=== PATIENT | male | born 1945 | race Caucasian/White ===

== ENCOUNTER 2017-10-18 08:06 | Emergency (ER) | payer MEDICARE, MEDICAID ==
[~2017-10-18] VITALS: Ht 182.9 cm; Wt 113.4 kg
[~2017-10-18 08:06] MED LIST: ADULT LOW DOSE81 MG PO; AMLODIPINE10 MG PO; AMLODIPINE5 M1 PO; ANTARA30 MG PO; ASPIRIN ADULT L81 M2 PO; AUGMENTIN 875-1 EACH PO; COGENTIN GENERIC1 MG PO; DOCUSATE SODIU100 MG PO; FISH OIL1000 MG PO; FLONASE 50 MCG16 GM; GALANTAMINE HYDR8 MG PO; GOOD NEIGHBOR P20 M1 PO; HALDOL 1MG. TABL1 MG IM; KEPPRA 500 MG500 MG PO; MAXZIDE 50 MG-71 TAB PO; MULTIVITAMIN1 SGL PO; NEXIUM40 MG/PACK PO; RAZADYNE8 MG PO; TYLENOL ES500 MG PO; VITAMIN D1000 IU PO
--- NOTE | 2017-10-18 08:19 | Emergency Room Report ---
History of Present Illness Time Seen by [id number] Presenting Problem in Triage Pt arrived:Ambulance Stretcher Presenting Problem:FROM [facility]. PATIENT REPORTEDLY FELL AT 0600 IN ROOM AND HIT HEAD. WHEN NURSING STAFF SAT HIM UP, HE WAS UNABLE TO SIT UP ON HIS OWN AND HAVING ALTERED MENTAL STATUS. Onset of symptoms date/time:10/18/17 or onset unknown for: Treatment Prior to Arrival: TRANSPORT, 18G IV PLACED LEFT AC RECORDS ASSISTANT Provided by: EMT Sepsis Risk Assessment: Temp: 98.5 B/P: 152/83 MAP: 106 Pulse: 80 Resp: 20 Recent fever? N Clinical Suspician of Infection? N Mental Status: 1 - Regular (Normal Baseline) Sepsis Risk:Low Sepsis Risk Have you (or family members/close friends) recently traveled outside the [place]? N If Yes, where/when: Have you had exposure to infectious disease within the past month? TB? Other? Specify: Patient with acutely slurred speech. He is able to comprehend and can answer yes/no questions as well as respond appropriately to questions by MD. He is able to express that he had slurred speech last night. He is able to confirm that he fell at the NH today with neg LOC at about six this AM. He takes aspirin. He is brought today via EMS due to slurred speech and head trauma with fall, no bleeding. Information obtained from EMS and NH, and in a limited fashion, from the patient. FSBS 118 in ED. Has hx dementia and paranoid schizophrenia per review of [place] papers. ALLERGIES Coded Allergies: No Known Allergies (11/05/16) Home Medications Reported Medications Aspirin 81 MG PO DAILY BENZTROPINE MESYLATE (COGENTIN 1MG TAB) 1 MG PO DAILY Fluticasone Propionate (Flonase 50 Mcg Nasal [place]) 1 SPRAY NA BID GALANTAMINE HBR ([place]) 8 MG PO BID MULTIVITAMIN (Multivitamins) 1 SGL PO DAILY Esomeprazole Magnesium (Nexium) 40 MG PO DAILY CHOLECALCIFEROL (VITAMIN D3) (Vitamin D3) 2,000 IUNITS PO DAILY Haloperidol (Haldol) 50 MG IM MONTHLY Metoprolol Tartrate (Metoprolol 25MG) 25 MG PO BID Acetaminophen (Tylenol XS 500MG) 1,000 MG PO Q6HP PRN PAIN/INCREASED TEMP History Medical History General CAD? No Angina: No [place]: No Hypertension? Yes Hyperlipidemia? Yes CHF? No DVT? No PE? No COPD? Yes Asthma? No Anemia? No GERD? Yes Gastric ulcers? No GI Bleed? No Hernia? No Thyroid Problems? No Hypothyroidism? No CVA? No Seizures? Yes Diabetes? No End Stage Renal Disease? No UTI? No Stones? No BPH? No GB Disease: No Nephritic Syndrome? No Asplenia? No Hepatitis? No Sickle Cell Disease? No Arthritis? Yes Migraines? No Cataracts? No Glaucoma? No MRSA? No HIV? No TB? No Anxiety? No Depression? No Cancer? No More? Yes Additional hx: DEMENTIA, ACHIOPRHRENIA Immunization Hx DT/Tetanus Unknown Surgical Hx Previous Surgery?N Family History Family Hx Cancer Yes Social History Smoking Hx Smoker: Never Smoker Tobacco: No Packs/day < 1 Pack Alcohol Alcohol: No Review of Systems All Other Systems Reviewed and Negative (limited due to speech change) Psychiatric/Neurological see HPI (last normal last night) Physical Exam Vital Signs Vital Signs Date Time Temp Pulse Resp B/P Pulse O2 O2 Flow FiO2 Ox Delivery Rate 10/18 0952 90 16 107/70 94 10/18 0809 98.5 80 20 152/83 91 General Appearance normal appearance, WD/WN, no apparent distress Eye Exam - bilateral eye normal exam, bilateral eye PERRL, bilateral eye EOMI (seems not to see well on left) Ear, Nose, Throat hearing grossly normal (atraumatic) Neck normal inspection, non-tender, supple, full range of motion Respiratory Status Yes: trachea midline, chest symmetrical, non tender chest. No: respiratory distress, tender on palpation, use of accessory muscles, pain on inspiration, pain on expiration, productive cough, non productive cough. Lung Sounds bilateral: normal breath sounds, lungs clear. Cardiovascular normal exam, regular rate/rhythm, no peripheral edema, no gallop, no JVD, no murmur, no rub, normal peripheral pulses Gastrointestinal normal bowel sounds, normal exam, non tender, soft, no organomegaly, no guarding, no rebound Back normal inspection, no vertebral tenderness, bowel/bladder continent, strt leg raising(L)-NML, strt leg raising(R)-NML Extremities non-tender, normal inspection, normal capillary refill Strength 4 Upper Ext (L), 4 Upper Ext (R), 4 Lower Ext (L), 4 Lower Ext (R) (formulator equal; globally weak) Neurologic alert, no motor/sensory deficits, oriented x 3, expressive aphasia, moderate. Globally weak, formulator equal; seems to have difficulty counting number of fingers in front of left eye when right eye covered; has intention tremor bilaterally. Gait not checked due to fall risk. No facial droop or drooling. Sensate face. Sensate limbs. Glascow Coma Scale Glascow Coma Scale Response Value EYE response: 4 Spontaneously 4 MOTOR response: 6 OBEYS 6 VERBAL response: 5 Oriented & Converses 5 Total 15 Skin intact, normal color Stroke Score/Tx Stroke Evaluation Initial symptoms indicative of possible stroke? Yes (also head trauma, however) NIH STROKE SCORE NIH STROKE SCORE Response Value 1a.Level of Consciousness ALERT 0 1b.LOC Questions ANSWERS BOTH CORRECTLY 0 1c.LOC Commands OBEYS BOTH CORRECTLY 0 2 .Best Gaze NORMAL 0 3 .Visual NO VISUAL LOSS 0 4 .Facial Palsy NORMAL 0 5a.Motor Arm Left NO DRIFT 0 5b.Motor Arm Right NO DRIFT 0 6a.Motor Leg Left NO DRIFT 0 6b.Motor Leg Right NO DRIFT 0 7 .Limb Ataxia ABSENT 0 8 .Sensory NORMAL 0 10.Dysarthria MILD TO MOD DYSARTHRIA 1 ED.NIH11 NO NEGLECT 0 Total 1 Treatment Consideration t-PA ordered? No Medical contraindications- onset last night so outside window period. also struck head this AM unknown if seizure or trauma. Medical Decision Making LABS/Meds/Orders Pt receiving controlled substance in ED? No Ovidio was queried for this patient? No Results/Orders Laboratory Tests 10/18/17 0905: Urine Color YELLOW, Urine Appearance CLEAR, Urine pH 6.0, Ur Specific [place] 1.020, Urine Protein 2+ H, Urine Ketones NEGATIVE, Urine Blood 2+ H, Urine Nitrate NEGATIVE, Urine Bilirubin NEGATIVE, Urine Urobilinogen 0.2, Ur Leukocyte Esterase NEGATIVE, Urine RBC NONE, Urine WBC OCC, Ur Squamous Epith Cells 3-5, Urine Bacteria 2+, Urine Glucose NEGATIVE 10/18/17 0840: POC Glucose 118 H 10/18/17 0820: Sodium 137, Potassium 4.4, Chloride 104, Carbon Dioxide 25, BUN 41 H, Creatinine 2.4 H, Estimated Creat Clear 45 L, Estimated GFR (MDRD) 27, Glucose 130 H, Calcium 8.8, Total Bilirubin 0.4, AST 16, ALT 28, Alkaline Phosphatase 82, Troponin I < 0.02, Total Protein 6.9, Albumin 2.9 L, Globulin 4.0 H, Albumin/Globulin Ratio 0.7 L, WBC 12.0 H, RBC 4.13 L, Hgb 11.4 L, Hct 34.8 L, MCV 84.1, RDW 14.2, Plt Count 263, MPV 7.4, Gran % 87.6 H, Gran # 10.5 H, Total Counted 100, Lymphocytes % 6.4 L, Monocytes % 5.5, Eosinophils % 0.4, Basophils % 0.2, Neutrophils 84 H, Band Neutrophils 8, Lymphocytes (Manual) 4 L, Lymphocytes # 0.8, Monocytes (Manual) 3, Monocytes # 0.7, Eosinophils # 0.0, Eosinophils # (Manual) 1, Basophils # 0.0, Platelet Estimate NORMAL, PUBS MCHC 33.0, MCH 27.7 Orders Procedure Date/time Status DIET-NOTHING BY MOUTH 10/[address] CERVICAL SPINE W/O CONT. 10/18 09 Active CULTURE, URINE 10/[address] SCAN REQ 10/18 0904 Complete GEN NSG/PT REQ (NOT FOR MEDS!) 10/18 0904 Active FINGERSTICK BLOOD SUGAR 10/18 0840 Complete DIFFERENTIAL-WBC 10/18 0820 Complete ELECTROCARDIOGRAM REQUEST 10/18 0817 Active CHEST-AP VIEW ONLY 10/18 0817 Active URINALYSIS/COMPLETE 10/18 0817 Complete TROPONIN I 10/18 0817 Complete FSBS REQUEST BY CARE AREA 10/18 0817 Active CBC WITH AUTO DIFF 10/18 0817 Complete CHEM 12 PROFILE 10/18 0817 Complete 12 LEAD EKG-TOR (INITIAL) 10/[address] HEAD REQ 10/18 0808 Complete CM/EKG CM/EKG EKG rate, NSR, rhythm, no evid. of ischemic chgs, no ectopy, normal QRS, normal NE, normal EKG (NSR 75) XRAY/CT/US XRAY/CT/US CT head CT interpretation by reviewed by me (report reviewed) Time results known: 854 CT Results neg acute findings; hx sinusitis. Consult MD Physician Consult Consult/PCP Dr. Reid STARKS requesting C collar placement prior to transfer to [facility]. Time Called 0855 Reason Pt. Condition, Transfer to facility, Neuro eval/care Progress ED Progress Notes Date 10/18/17 Time 0943 Comment Awaiting EMS arrival. Departure Departure Time of Disposition 09 Disposition DC/XFER from ER to [facility] Clinical Impression Primary Impression: Expressive aphasia Condition STABLE Referrals Raul Lemon MD (PCP) ED Critical Care Critical Care Yes Time spent < 30 min Vital system(s) involved: Central Nervous System I was present at bedside for Coordinating pt's care, Reviewing old records, Discussing pt condition, For re-examinations, consultation at [phone]
--- NOTE | 2017-10-18 08:19 | Emergency Room Report ---
History of Present Illness Time Seen by [id number] Presenting Problem in Triage Pt arrived:Ambulance Stretcher Presenting Problem:FROM [facility]. PATIENT REPORTEDLY FELL AT 0600 IN ROOM AND HIT HEAD. WHEN NURSING STAFF SAT HIM UP, HE WAS UNABLE TO SIT UP ON HIS OWN AND HAVING ALTERED MENTAL STATUS. Onset of symptoms date/time:10/18/17 or onset unknown for: Treatment Prior to Arrival: TRANSPORT, 18G IV PLACED LEFT AC SUPERVISOR ADVICE Provided by: EMT Sepsis Risk Assessment: Temp: 98.5 B/P: 152/83 MAP: 106 Pulse: 80 Resp: 20 Recent fever? N Clinical Suspician of Infection? N Mental Status: 1 - Regular (Normal Baseline) Sepsis Risk:Low Sepsis Risk Have you (or family members/close friends) recently traveled outside the [place]? N If Yes, where/when: Have you had exposure to infectious disease within the past month? TB? Other? Specify: Patient with acutely slurred speech. He is able to comprehend and can answer yes/no questions as well as respond appropriately to questions by MD. He is able to express that he had slurred speech last night. He is able to confirm that he fell at the NH today with neg LOC at about six this AM. He takes aspirin. He is brought today via EMS due to slurred speech and head trauma with fall, no bleeding. Information obtained from EMS and NH, and in a limited fashion, from the patient. FSBS 118 in ED. Has hx dementia and paranoid schizophrenia per review of [place] papers. ALLERGIES Coded Allergies: No Known Allergies (11/05/16) Home Medications Reported Medications Aspirin 81 MG PO DAILY BENZTROPINE MESYLATE (COGENTIN 1MG TAB) 1 MG PO DAILY Fluticasone Propionate (Flonase 50 Mcg Nasal [place]) 1 SPRAY NA BID GALANTAMINE HBR ([place]) 8 MG PO BID MULTIVITAMIN (Multivitamins) 1 SGL PO DAILY Esomeprazole Magnesium (Nexium) 40 MG PO DAILY CHOLECALCIFEROL (VITAMIN D3) (Vitamin D3) 2,000 IUNITS PO DAILY Haloperidol (Haldol) 50 MG IM MONTHLY Metoprolol Tartrate (Metoprolol 25MG) 25 MG PO BID Acetaminophen (Tylenol XS 500MG) 1,000 MG PO Q6HP PRN PAIN/INCREASED TEMP History Medical History General CAD? No Angina: No [place]: No Hypertension? Yes Hyperlipidemia? Yes CHF? No DVT? No PE? No COPD? Yes Asthma? No Anemia? No GERD? Yes Gastric ulcers? No GI Bleed? No Hernia? No Thyroid Problems? No Hypothyroidism? No CVA? No Seizures? Yes Diabetes? No End Stage Renal Disease? No UTI? No Stones? No BPH? No GB Disease: No Nephritic Syndrome? No Asplenia? No Hepatitis? No Sickle Cell Disease? No Arthritis? Yes Migraines? No Cataracts? No Glaucoma? No MRSA? No HIV? No TB? No Anxiety? No Depression? No Cancer? No More? Yes Additional hx: DEMENTIA, ACHIOPRHRENIA Immunization Hx DT/Tetanus Unknown Surgical Hx Previous Surgery?N Family History Family Hx Cancer Yes Social History Smoking Hx Smoker: Never Smoker Tobacco: No Packs/day < 1 Pack Alcohol Alcohol: No Review of Systems All Other Systems Reviewed and Negative (limited due to speech change) Psychiatric/Neurological see HPI (last normal last night) Physical Exam Vital Signs Vital Signs Date Time Temp Pulse Resp B/P Pulse O2 O2 Flow FiO2 Ox Delivery Rate 10/18 0952 90 16 107/70 94 10/18 0809 98.5 80 20 152/83 91 General Appearance normal appearance, WD/WN, no apparent distress Eye Exam - bilateral eye normal exam, bilateral eye PERRL, bilateral eye EOMI (seems not to see well on left) Ear, Nose, Throat hearing grossly normal (atraumatic) Neck normal inspection, non-tender, supple, full range of motion Respiratory Status Yes: trachea midline, chest symmetrical, non tender chest. No: respiratory distress, tender on palpation, use of accessory muscles, pain on inspiration, pain on expiration, productive cough, non productive cough. Lung Sounds bilateral: normal breath sounds, lungs clear. Cardiovascular normal exam, regular rate/rhythm, no peripheral edema, no gallop, no JVD, no murmur, no rub, normal peripheral pulses Gastrointestinal normal bowel sounds, normal exam, non tender, soft, no organomegaly, no guarding, no rebound Back normal inspection, no vertebral tenderness, bowel/bladder continent, strt leg raising(L)-NML, strt leg raising(R)-NML Extremities non-tender, normal inspection, normal capillary refill Strength 4 Upper Ext (L), 4 Upper Ext (R), 4 Lower Ext (L), 4 Lower Ext (R) (cardiac specialist equal; globally weak) Neurologic alert, no motor/sensory deficits, oriented x 3, expressive aphasia, moderate. Globally weak, cardiac specialist equal; seems to have difficulty counting number of fingers in front of left eye when right eye covered; has intention tremor bilaterally. Gait not checked due to fall risk. No facial droop or drooling. Sensate face. Sensate limbs. Glascow Coma Scale Glascow Coma Scale Response Value EYE response: 4 Spontaneously 4 MOTOR response: 6 OBEYS 6 VERBAL response: 5 Oriented & Converses 5 Total 15 Skin intact, normal color Stroke Score/Tx Stroke Evaluation Initial symptoms indicative of possible stroke? Yes (also head trauma, however) NIH STROKE SCORE NIH STROKE SCORE Response Value 1a.Level of Consciousness ALERT 0 1b.LOC Questions ANSWERS BOTH CORRECTLY 0 1c.LOC Commands OBEYS BOTH CORRECTLY 0 2 .Best Gaze NORMAL 0 3 .Visual NO VISUAL LOSS 0 4 .Facial Palsy NORMAL 0 5a.Motor Arm Left NO DRIFT 0 5b.Motor Arm Right NO DRIFT 0 6a.Motor Leg Left NO DRIFT 0 6b.Motor Leg Right NO DRIFT 0 7 .Limb Ataxia ABSENT 0 8 .Sensory NORMAL 0 10.Dysarthria MILD TO MOD DYSARTHRIA 1 ED.NIH11 NO NEGLECT 0 Total 1 Treatment Consideration t-PA ordered? No Medical contraindications- onset last night so outside window period. also struck head this AM unknown if seizure or trauma. Medical Decision Making LABS/Meds/Orders Pt receiving controlled substance in ED? No Ovidio was queried for this patient? No Results/Orders Laboratory Tests 10/18/17 0905: Urine Color YELLOW, Urine Appearance CLEAR, Urine pH 6.0, Ur Specific [place] 1.020, Urine Protein 2+ H, Urine Ketones NEGATIVE, Urine Blood 2+ H, Urine Nitrate NEGATIVE, Urine Bilirubin NEGATIVE, Urine Urobilinogen 0.2, Ur Leukocyte Esterase NEGATIVE, Urine RBC NONE, Urine WBC OCC, Ur Squamous Epith Cells 3-5, Urine Bacteria 2+, Urine Glucose NEGATIVE 10/18/17 0840: POC Glucose 118 H 10/18/17 0820: Sodium 137, Potassium 4.4, Chloride 104, Carbon Dioxide 25, BUN 41 H, Creatinine 2.4 H, Estimated Creat Clear 45 L, Estimated GFR (MDRD) 27, Glucose 130 H, Calcium 8.8, Total Bilirubin 0.4, AST 16, ALT 28, Alkaline Phosphatase 82, Troponin I < 0.02, Total Protein 6.9, Albumin 2.9 L, Globulin 4.0 H, Albumin/Globulin Ratio 0.7 L, WBC 12.0 H, RBC 4.13 L, Hgb 11.4 L, Hct 34.8 L, MCV 84.1, RDW 14.2, Plt Count 263, MPV 7.4, Gran % 87.6 H, Gran # 10.5 H, Total Counted 100, Lymphocytes % 6.4 L, Monocytes % 5.5, Eosinophils % 0.4, Basophils % 0.2, Neutrophils 84 H, Band Neutrophils 8, Lymphocytes (Manual) 4 L, Lymphocytes # 0.8, Monocytes (Manual) 3, Monocytes # 0.7, Eosinophils # 0.0, Eosinophils # (Manual) 1, Basophils # 0.0, Platelet Estimate NORMAL, PUBS MCHC 33.0, MCH 27.7 Orders Procedure Date/time Status DIET-NOTHING BY MOUTH 10/[address] CERVICAL SPINE W/O CONT. 10/18 09 Active CULTURE, URINE 10/[address] SCAN REQ 10/18 0904 Complete GEN NSG/PT REQ (NOT FOR MEDS!) 10/18 0904 Active FINGERSTICK BLOOD SUGAR 10/18 0840 Complete DIFFERENTIAL-WBC 10/18 0820 Complete ELECTROCARDIOGRAM REQUEST 10/18 0817 Active CHEST-AP VIEW ONLY 10/18 0817 Active URINALYSIS/COMPLETE 10/18 0817 Complete TROPONIN I 10/18 0817 Complete FSBS REQUEST BY CARE AREA 10/18 0817 Active CBC WITH AUTO DIFF 10/18 0817 Complete CHEM 12 PROFILE 10/18 0817 Complete 12 LEAD EKG-TOR (INITIAL) 10/[address] HEAD REQ 10/18 0808 Complete CM/EKG CM/EKG EKG rate, NSR, rhythm, no evid. of ischemic chgs, no ectopy, normal QRS, normal RI, normal EKG (NSR 75) XRAY/CT/US XRAY/CT/US CT head CT interpretation by reviewed by me (report reviewed) Time results known: 854 CT Results neg acute findings; hx sinusitis. Consult MD Physician Consult Consult/PCP Dr. Reid STARKS requesting C collar placement prior to transfer to [facility]. Time Called 0855 Reason Pt. Condition, Transfer to facility, Neuro eval/care Progress ED Progress Notes Date 10/18/17 Time 0943 Comment Awaiting EMS arrival. Departure Departure Time of Disposition 09 Disposition DC/XFER from ER to [facility] Clinical Impression Primary Impression: Expressive aphasia Condition STABLE Referrals Raul Lemon MD (PCP) ED Critical Care Critical Care Yes Time spent < 30 min Vital system(s) involved: Central Nervous System I was present at bedside for Coordinating pt's care, Reviewing old records, Discussing pt condition, For re-examinations, consultation at 2137
[2017-10-18] MEDS ORDERED: METOPROLOL 25 M25 MG PO (08:23)
[2017-10-18 08:42] LABS: LYMPH # 0.8 K/mm3 (0.7-4.5); LYMPH % 6.4 % (10-50)
[2017-10-18 08:44] LABS: HEMOGLOBIN 11.4 g/dL (14.1-18.0)
--- NOTE | 2017-10-18 08:49 | RADIOLOGY REPORT PS360 ---
CT HEAD WITHOUT CONTRAST CT BONE WINDOWS included ORDERING PHYSICIAN : Kerry Eden MD PATIENT AGE: 72 years GENDER: Male PROCEDURE: Routine axial images headwithout contrast. Brain & bone windows HISTORY: STROKE PROTOCOL AMS FALL slurred speech, mental status changes. senior living patient. Fell this morning COMPARISON: 11/05/2016 CT head and [address] had FINDINGS: No acute intracranial findings. No hemorrhage. No mass effect or mass lesion. No subdural nor extra-axial collection. Diffuse cerebral atrophy. Mild dilatation the lateral ventricles most likely reflecting the cerebral atrophy. The posterior fossa appear satisfactory and unremarkable. No skull fracture nor lesion. Paranasal sinus disease Bilateral ethmoid sinusitis again noted- with mucosal thickening & opacification numerous ethmoid air cells bilaterally, most evident on right. Left maxillary sinus large likely retention cyst extending from the ovoid density medial floor left maxillary sinus 2.4 cm. Right maxillary sinus with moderate diffuse mucosal thickening with likely some minimal fluid posteriorly which may reflect acute sinusitis. Findings here are shown slight progression since November Sphenoid and frontal sinus are relatively clear scant mucosal thickening.. Mastoid air cells, middle ear & IACs are unremarkable. Critical result called to Merary in ER on 10/18/2017 8:44 AM. IMPRESSION: No acute intracranial findings. CT brain unchanged since head CT studies . Cerebral atrophy . Paranasal sinus disease again observed.. Bilateral ethmoid sinusitis most pronounced
[2017-10-18 08:58] LABS: BUN 41 mg/dL (7-18)
[2017-10-18 09:01] LABS: GFR (ESTIMATED) 27 ML/MIN (>60); NEUTROPHILS 84 % (42-76)
[2017-10-18 09:34] LABS: URINE BILIRUBIN - DIPSTICK NEGATIVE (NEG); URINE BLOOD 2+ (NEG)
--- NOTE | 2017-10-18 10:15 | RADIOLOGY REPORT PS360 ---
CHEST-AP VIEW ONLY HISTORY: slurred speech; fell struck head this AM Patient Age: 72 years: Male Ordering Physician: Kerry Eden MD TECHNIQUE: AP lordotic portable chest COMPARISON :Prior chest film 11/04/2016 FINDINGS Somewhat distorted chest view. Chest rotated to the left with lordotic projection . . Apices the lungs are clear. The left lung is clear. Increased markings at right 1 base suggesting most likely atelectasis here.. Difficult to exclude minimal infiltrate but favor minimal atelectasis. If first ray symptoms follow-up suggested to exclude early infiltrate right lung base. The heart josé antonio and mediastinal structures appear satisfactory otherwise. IMPRESSION: Lordotic, Leftward rotated chest distorts the chest. Increased markings right lung base most likely reflect atelectasis & rotated projection, but difficult to exclude early infiltrate right lung base.] If respiratory symptoms persist consider follow-up
--- OUTSIDE RECORDS SUMMARY | 2017-10-18 10:18 | External Medical Summary Rpt | CCD ---
Author Author , BERRY SMART Address Unknown Phone [email or web address] 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 J32.9 CHRONIC SINUSITIS, UNSPECIFIED R31.29 OTHER MICROSCOPIC HEMATURIA R46.89 OTHER SYMPTOMS AND SIGNS INVOLVING APPEARANCE AND BEHAVIOR R47.9 UNSPECIFIED SPEECH DISTURBANCE S S00.93XA CONTUSION OF UNSPECIFIED PART OF HEAD, INITIAL ENCOUNTER S06.9X9A UNSP INTRACRANIA L INJURY W LOC OF UNSP DURATION, INIT S50.02XA CONTUSION OF LEFT ELBOW, INITIAL ENCOUNTER W19.XXXA UNSPECIFIED FALL, INITIAL ENCOUNTER Results Labs Lab Lab Date Result Refere Interp Status Commen Order Detail nces retati t Range on Urinalysis dipstick W Reflex Microscopic panel in Urine (10-18-2017 09:05) Bacteri 2+ O complet a 017 ed [Presen 09:05 ce] in Urine sedimen t by Light microsc opy Erythro NONE 0 complet cytes 017 ed [Presen 09:05 ce] in Urine sedimen t by Light microsc opy Epithel 3-5 OCC complet ial 017 ed cells.s 09:05 quamous [Presen ce] in Urine sedimen t by Microsc opy high power field Urinalysis dipstick W Reflex Microscopic panel in Urine (10-18-2017 09:05) Appeara CLEAR CLEAR complet nce of 017 ed Urine 09:05 Bilirub NEGATIV NEG complet in 017 E ed [Presen 09:05 ce] in Urine by Test strip Erythro 2+ NEG Abnorma complet cytes 017 l ed [Presen 09:05 ce] in Urine Color YELLOW YELLOW complet of 017 ed Urine 09:05 Ketones NEGATIV NEG complet 017 E ed [Presen 09:05 ce] in Urine by Automat ed test strip Mucus NEGATIV NEG complet [Presen 017 E ed ce] in 09:05 Urine sedimen t by Light microsc opy Nitrite NEGATIV NEG complet 017 E ed [Presen 09:05 ce] in Urine by Test strip Urobili 0.2 NEG complet nogen 017 ed [Presen 09:05 ce] in Urine by Test strip Glucose capillary blood glucometer (10-18-2017 08:40) Glucose = 118 70-110 complet 017 mg/dl ed capilla 08:[address] CBC w auto diff (10-18-2017 08:20) Automat = 0.0 0-0.2 complet ed 017 K/MM3 ed blood 08:20 basophi l count (count/ vo Baso % = 0.2 % 0.1-2.0 complet 017 ed 08:20 Automat = 0.0 0.0-0.4 complet ed 017 K/mm3 ed blood 08:20 eosinop hil count Automat = 0.4 % 0.1-12. complet ed 017 0 ed blood 08:20 eosinop hils/10 0 leukocy t Blood = 10.5 1.3-8.0 complet granulo 017 K/mm3 ed cytes 08:20 automat ed count (numb Granulo = 87.6 37.0-80 complet cyte 017 % .0 ed percent 08:20 age Blood = 34.8 42.0-52 complet hematoc 017 % .0 ed rit 08:20 (volume fractio n) Blood = 11.4 14.1-18 complet hemoglo 017 g/dL .0 ed bin 08:20 measure ment (mass/v olum Absolut = 0.8 0.7-4.5 complet e 017 K/mm3 ed lymphoc 08:20 yte count Lymphoc = 6.4 % 10-50 complet yte 017 ed count, 08:20 blood, automat ed Mean = 27.7 27-31.2 complet corpusc 017 pg ed ular 08:20 hemoglo bin (M[facility]) determ Automat = 33.0 31.8-35 complet ed 017 g/dl .4 ed erythro 08:20 cyte mean corpusc ular h Automat = 84.1 82.2-97 complet ed 017 fl .8 ed erythro 08:20 cyte mean corpusc ular v Absolut = 0.7 0.1-1.0 complet e 017 K/mm3 ed monocyt 08:20 e count [place] % = 5.5 % 1.7-9.3 complet 017 ed 08:20 Automat = 7.4 7.4-10. complet ed 017 fl 4 ed blood 08:20 platele t mean volume usman Blood = 263 142-424 complet platele 017 K/mm3 ed t count 08:20 Red = 4.13 4.6-6.2 complet blood 017 M/mm3 ed cell 08:20 count Automat = 14.2 11.5-17 complet ed 017 % .5 ed erythro 08:20 cyte distrib ution width Blood = 12.0 4.8-10. complet leukocy 017 K/MM3 8 ed marlen 08:20 count (number /volume ) Differential panel, method unspecified - (10-18-2017 08:20) Manual = 1 % 0-3 complet blood 017 ed eosinop 08:20 hils/10 0 leukocy marlen LYMPH 4 % 10-50 complet 017 ed 08:20 Monocyt = 3 % 2-9 complet e % 017 ed 08:20 Platele NORMAL complet t 017 NORMAL ed estimat 08:20 L e Neutrop = 84 % 42-76 complet hil 017 ed count 08:20 Blood = 100 complet total 017 #CELLS ed cell 08:20 count Automat = 8 % 0-8 complet ed 017 ed blood 08:20 band neutrop hil percent a Differential panel, method unspecified - (10-18-2017 08:20) LYMPH 4 % 10% - Low complet 017 50% ed 08:20 Platele NORMAL complet ts 017 ed [Presen 08:20 ce] in Blood by Light microsc opy
--- OUTSIDE RECORDS SUMMARY | 2017-10-18 10:18 | External Medical Summary Rpt | CCD ---
Author Author [employer] Address Unknown Phone Unavailable Purpose Continuity of Care Document - through 2016
--- OUTSIDE RECORDS SUMMARY | 2017-10-18 10:18 | External Medical Summary Rpt | CCD ---
Author Author , BERRY SMART Address Unknown Phone [email or web address] Purpose Continuity of Care Document - 10-18-2017 [...] 017 K/mm3 ed monocyt 08:20 e count [place] % = 5.5 % 1.7-9.3 complet 017 [...]
--- OUTSIDE RECORDS SUMMARY | 2017-10-18 10:18 | External Medical Summary Rpt | CCD ---
Demographics Preferred Language Latvian Marital Status Unknown Protestant Affiliation Unknown Race Unknown Ethnic Group Unknown Author Author , BERRY SMART Address Unknown Phone Immunization No patient found.
--- OUTSIDE RECORDS SUMMARY | 2017-10-18 10:18 | External Medical Summary Rpt | CCD ---
Demographics Preferred Language Telugu Marital Status Unknown Pentecostalism Affiliation Unknown Race Unknown Ethnic Group Unknown Author Author , BERRY SMART Address Unknown Phone Immunization No patient found.
[2017-10-18 10:19] VITALS: BP 107/70
--- OUTSIDE RECORDS SUMMARY | 2017-10-18 10:19 | External Medical Summary Rpt ---
Author Author [employer], [employer] Organization [employer] Address Unknown Phone Unavailable Results Urinalysis dipstick W Reflex Microscopic panel in Urine Observa Value Referen Units Interpr Notes Date tion ce etation Range Appeara CLEAR CLEAR No No No Oct 18 nce of informa informa informa 2017 Urine tion in tion in tion in 9:05 AM source source source data data data Bacteri 2+ O No No No Oct 18 a informa informa informa 2016 [Presen tion in tion in tion in 9:05 AM ce] in source source source Urine data data data sedimen t by Light microsc opy Bilirub NEGATIV NEG No No No Oct 18 in E informa informa informa 2016 [Presen tion in tion in tion in 9:05 AM ce] in source source source Urine data data data by Test strip Erythro 2+ NEG No Abnorma No Oct 18 cytes informa l informa 2016 [Presen tion in tion in 9:05 AM ce] in source source Urine data data Color YELLOW YELLOW No No No Oct 18 of informa informa informa 2017 Urine tion in tion in tion in 9:05 AM source source source data data data Glucose NEG No No No Oct 18 [Mass/vol informati informati informati 2016 9:05 ume] in on in on in on in AM Urine by source source source Test data data data strip Ketones NEGATIV NEG mg/dL No No Oct 18 E informa informa 2016 [Presen tion in tion in 9:05 AM ce] in source source Urine data data by Automat ed test strip Mucus NEGATIV NEG No No No Oct 18 [Presen E informa informa informa 2016 ce] in tion in tion in tion in 9:05 AM Urine source source source sedimen data data data t by Light microsc opy Nitrite NEGATIV NEG No No No Oct 18 E informa informa informa 2016 [Presen tion in tion in tion in 9:05 AM ce] in source source source Urine data data data by Test strip pH of 5.0 - 8.5 No Normal No Oct 18 Urine informati informati 2017 9:05 on in on in AM source source data data Protein NEG mg/dL High No Oct 18 [Mass/vol informati 2017 9:05 ume] in on in AM Urine by source Automated data test strip Erythro NONE 0 rbc/hpf No No Oct 18 cytes informa informa 2016 [Presen tion in tion in 9:05 AM ce] in source source Urine data data sedimen t by Light microsc opy Specific 1.005 - No Normal No Oct 18 gravity 1.030 informati informati 2016 9:05 of Urine on in on in AM source source data data Epithel 3-5 OCC #/hpf No No Oct 18 ial informa informa 2017 cells.s tion in tion in 9:05 AM quamous source source data data [Presen ce] in Urine sedimen t by Microsc opy high power field Urobili 0.2 NEG E.U./dL No No Oct 18 nogen informa informa 2016 [Presen tion in tion in 9:05 AM ce] in source source Urine data data by Test strip Leukocyte O wbc/hpf No No Oct 18 s informati informati 2016 9:05 [#/volume on in on in AM ] in source source Urine data data Urinalysis dipstick W Reflex Microscopic panel in Urine Observa Value Referen Units Interpr Notes Date tion ce etation Range Appeara CLEAR CLEAR No No No Oct 18 nce of informa informa informa 2016 Urine tion in tion in tion in 9:05 AM source source source data data data Bilirub NEGATIV NEG No No No Oct 18 in E informa informa informa 2016 [Presen tion in tion in tion in 9:05 AM ce] in source source source Urine data data data by Test strip Erythro 2+ NEG No Abnorma No Oct 18 cytes informa l informa 2016 [Presen tion in tion in 9:05 AM ce] in source source Urine data data Color YELLOW YELLOW No No No Oct 18 of informa informa informa 2017 Urine tion in tion in tion in 9:05 AM source source source data data data Glucose NEG No No No Oct 18 [Mass/vol informati informati informati 2016 9:05 ume] in on in on in on in AM Urine by source source source Test data data data strip Ketones NEGATIV NEG mg/dL No No Oct 18 E informa informa 2016 [Presen tion in tion in 9:05 AM ce] in source source Urine data data by Automat ed test strip Mucus NEGATIV NEG No No No Oct 18 [Presen E informa informa informa 2016 ce] in tion in tion in tion in 9:05 AM Urine source source source sedimen data data data t by Light microsc opy Nitrite NEGATIV NEG No No No Oct 18 E informa informa informa 2016 [Presen tion in tion in tion in 9:05 AM ce] in source source source Urine data data data by Test strip pH of 5.0 - 8.5 No Normal No Oct 18 Urine informati informati 2016 9:05 on in on in AM source source data data Protein NEG mg/dL High No Oct 18 [Mass/vol informati 2016 9:05 ume] in on in AM Urine by source Automated data test strip Specific 1.005 - No Normal No Oct 18 gravity 1.030 informati informati 2016 9:05 of Urine on in on in AM source source data data Urobili 0.2 NEG E.U./dL No No Oct 18 nogen informa informa 2016 [Presen tion in tion in 9:05 AM ce] in source source Urine data data by Test strip Glucose [Mass/volume] in Capillary blood by Glucometer Observa Value Referen Units Interpr Notes Date ti ce etation Range Glucose 70 - 110 mg/dl High No Oct 18 [Mass/vol informati 2016 8:40 ume] in on in AM Capillary source blood by data Glucomete r CBC W Auto Differential panel in Blood Observa Value Referen Units Interpr Notes Date ti ce etation Range Basophils 0 - 0.2 K/MM3 Normal No Oct 17 2016 8:20 [#/volume on in AM ] in source Blood by data Automated count Basophils 0.1 - 2.0 % Normal No Oct 18 /100 informati 2016 8:20 leukocyte on in AM s in source Blood by data Automated count Eosinophi 0.0 - 0.4 K/mm3 Normal No Oct 18 ls informati 2016 8:20 [#/volume on in AM ] in source Blood by data Automated count Eosinophi 0.1 - % Normal No Oct 18 ls/100 12.0 informati 2016 8:20 leukocyte on in AM s in source Blood by data Automated count Granulocy 1.3 - 8.0 K/mm3 High No Oct 18 marlen informati 2016 8:20 [#/volume on in AM ] in source Blood by data Automated count Granulocy 37.0 - % High No Oct 18 marlen/100 80.0 informati 2016 8:20 leukocyte on in AM s in source Blood by data Automated count Hematocri 42.0 - % Low No Oct 18 t [Volume 52.0 informati 2016 8:20 on in AM Fraction] source of Blood data Hemoglobi 14.1 - g/dL Low No Oct 18 n 18.0 informati 2016 8:20 [Mass/vol on in AM ume] in source Blood data Lymphocyt 0.7 - 4.5 K/mm3 Normal No Oct 18 es informati 2016 8:20 [#/volume on in AM ] in source Unspecifi data ed specimen by Automated count Lymphocyt 10 - 50 % Low No Oct 18 es informati 2016 8:20 [#/volume on in AM ] in source Unspecifi data ed specimen by Automated count Erythrocy 27 - 31.2 pg Normal No Oct 18 te mean informati 2016 8:20 corpuscul on in AM ar source hemoglobi data n [Entitic mass] Erythrocy 31.8 - g/dl Normal Oct 18 te mean 35.4 informati 2016 8:20 corpuscul on in AM ar source hemoglobi data n concentra tion [Mass/vol ume] by Automated count Erythrocy 82.2 - fl Normal No Oct 18 te mean 97.8 informati 2016 8:20 corpuscul on in AM ar volume source [Entitic data volume] by Automated count Monocytes 0.1 - 1.0 K/mm3 Normal No Oct 18 informati 2016 8:20 [#/volume on in AM ] in source Blood by data Automated count Monocytes 1.7 - 9.3 % Normal No Oct 18 /100 informati 2016 8:20 leukocyte on in AM s in source Blood by data Automated count Platelet 7.4 - fl Normal No Oct 18 mean 10.4 informati 2016 8:20 volume on in AM [Entitic source volume] data in Blood by Automated count Platelets 142 - 424 K/mm3 No No Oct 18 informati informati 2016 8:20 [#/volume on in on in AM ] in source source Blood data data Erythrocy 4.6 - 6.2 M/mm3 Low No Oct 18 marlen informati 2016 8:20 [#/volume on in AM ] in source Amniotic data fluid Erythrocy 11.5 - % Normal No Oct 18 te 17.5 informati 2016 8:20 distribut on in AM ion width source [Entitic data volume] by Automated count Leukocyte 4.8 - K/MM3 High No Oct 18 s 10.8 informati 2016 8:20 [#/volume on in AM ] in source Blood data Differential panel, method unspecified - Observa Value Referen Units Interpr Notes Date tion ce etation Range Neutrophi 0 - 8 % Normal No Oct 18 ls.band ati 2016 8:20 form/100 on in AM leukocyte source s in data Blood by Automated count Eosinophi 0 - 3 % Normal No Oct 18 ls/100 informati 2016 8:20 leukocyte on in AM s in source Blood by data Manual count LYMPH 4 10 - 50 % Low No Oct 182016 tion in 8:20 AM source data Monocytes 2 - 9 % Normal No Oct 17 /100 informati 2016 8:20 leukocyte on in AM s in source Blood by data Automated count Platele NORMAL No No No No Oct 18 ts informa informa informa informa 2016 [Presen tion in tion in tion in tion in 8:20 AM ce] in source source source source Blood data data data data by Light microsc opy Neutrophi 42 - 76 % High No Oct 18 ls informati 2016 8:20 [#/volume on in AM ] in source Blood by data Automated count Cells No #CELLS No No Oct 18 Counted informati informati informati 2016 8:20 Total [#] on in on in on in AM in Blood source source source data data data
--- NOTE | 2017-10-18 10:33 | RADIOLOGY REPORT PS360 ---
CT CERVICAL SPINE W/O CONT HISTORY: FALL 10/18/17 AT [facility] neck pain. Headache. Mental status changes Patient Age: 72 years: Male Ordering Physician: Kerry Eden MD TECHNIQUE: Helical CT scanning performed through the cervical spine with sagittal and coronal reconstructions on CT workstation. COMPARISON :No previous cervical studies. There is a MRI of the brain which includes upper C-spine 11/05/2016. FINDINGS No acute fracture nor subluxation cervical spine. C1 1 C2 relationships appear normal. Odontoid intact. Satisfactory alignment. Prevertebral soft tissues appear normal.. Cervical spondylosis and degenerative disc changes most evident at C5-C6 followed by C6/7. And to lesser degree other levels C5/6. Disc space narrowing with diffuse posterior hypertrophic endplate changes and posterior ridging most evident the left additional spinal stenosis and bilateral foraminal encroachment most evident to the left. C6/7. More prominent posterior spurring is seen at this level most notable at midline. Diffuse Posterior marginal osteophytes become most evident central and to the left. These yield central canal stenosis and generous left foraminal encroachment more so than right Also mild facet arthropathy and hypertrophy is seen at multiple levels throughout the cervical spine . Thyroid generous in size right lobe 5.5 seem in length left lobe 4.8 seem in length. Cannot exclude, questionable modest thyroid nodules on right Apices the lungs included, COPD and emphysematous changes with bleb formation. Paranasal sinus disease on again noted and was discussed on the previous CT head report. With this very enlarged swollen turbinate noted bilaterally, with deviation nasal septum. The very Large left turbinate extend posteriorly into the posterior nasopharynx. Suspect likely polyp/ Polypoid changes here At this enlarged turbinate... The large ovoid likely retention cyst floor the LEFT maxillary sinus again noted . Right maxillary sinus with [id number] diffuse mucosal thickening & likely bubbly fluid level posteriorly which may reflect some acute sinusitis features on right IMPRESSION: ------- 1. Cervical spine w/ no acute fracture nor subluxation. Normal alignment 2. Degenerative disc changes & Cervical spondylosis most evident at C6/7 and C5/6. Central canal Spinal stenosis with left foraminal encroachment more than right at each of these levels, due to the hypertrophic changes & spurring 3. Paranasal sinus disease again noted. Distally note the prominent enlargement of the turbinates particularly the middle turbinates. The the enlarged left middle turbinate extends posteriorly into the nasopharynx.. Possible,/ suspect polyp or polypoid changes here.. - This features noted and stable since previous MRI head from Nov 2016)
== END 2017-10-18 10:22 | disposition short-term general hospital (02) ==
LOC: ER 08:06
PROVIDERS: Emergency Medicine
DX: F80.1 Expressive language disorder (principal); I10 Essential (primary) hypertension; E78.5 Hyperlipidemia, unspecified; J44.9 Chronic obstructive pulmonary disease, unspecified; R41.82 Altered mental status, unspecified

== ENCOUNTER → 2017-10-28 | Outpatient (CLI) | payer MEDICARE, MEDICAID ==
[~2017-10-28] MED LIST changes: +METOPROLOL 25 M25 MG PO
--- NOTE | 2017-10-28 17:24 | RADIOLOGY REPORT PS360 ---
US URINARY BLADDER HISTORY: URINARY RETENSION ORDERING PHYSICIAN: Holley Greene APRN PATIENT AGE: 72 years COMPARISON: None FINDINGS: Study is limited as the patient had to be scanned sitting in a wheelchair and was unable to void during the exam. Limited images of the bladder are unremarkable showing a volume of 100 mL's. Postvoid images could not be performed as the patient could not urinate. IMPRESSION: Limited study with unremarkable appearing partially filled urinary bladder. Post void images not performed
== END ==
LOC: RAD 15:00
DX: R33.9 Retention of urine, unspecified (principal)